=== PATIENT | male | born 1970 | race Caucasian/White ===

== ENCOUNTER → 2020-01-31 15:17 | Outpatient (CLI) | payer BC, SELFPAY ==
[2017-10-04 15:12] VITALS: BMI 25.8
[2020-01-31 15:23] LABS: Bacteria 0 SEEN /hpf (None Seen); Mucous, Urine 0 SEEN /hpf (<or=2+); Squamous Epithelial Cells - UA 0 SEEN /hpf (0-5); White Blood Cells 0 SEEN /hpf (0-5)
[2020-01-31 17:34] LABS: Absolute Lymphocyte Count 2.82 X10^3/uL (0.83-4.51); Absolute Neutrophil Count 3.7 X10^3/uL (2.0-7.7); Basophil# 0.09 X10^3/uL; Basophil% 1.2 % (0-1); Eosinophil# 0.36 X10^3/uL; Eosinophils% 4.7 % (0-5); Hematocrit 46.7 % (40-54); Hemoglobin 15.3 g/dL (13.0-16.5); Lymphocyte # 2.82 X10^3/ul (4.0); Lymphocyte % 37.2 % (19-41); Mean Corp Hgb Conc 32.8 g/dL (32-36); Mean Corpuscular Hgb 29.2 pg (27.0-32.0); Mean Corpuscular Volume 89.1 fL (80-94); Mean Platelet Vol. 10.3 fl (6.2-12.0); Monocyte# 0.64 X10^3/uL; Monocyte% 8.4 % (0-10); NRBC Flagged by Analyzer 0 % (0-5); Neutrophil # 3.65 X10^3/uL (2.7-7.7); Neutrophil % 48.1 % (47-70); Platelet Count 258 K/mm3 (150-450); RBC Distribution Width CV 11.8 % (11.6-14.6); RBC Distribution Width SD 38.5 fl (35.1-43.9); Red Blood Count 5.24 M/mm3 (4.6-6.2); White Blood Count 7.6 K/mm3 (4.4-11.0)
[2020-01-31 18:00] LABS: Color, Urine Yellow (Yellow); Glucose, Dipstick Normal (Normal); Ketone-Dipstick Negative (Negative); Leukocyte Esterase-Dipstick Negative /ul (Negative); Nitrite-Dipstick Negative (Negative); Occult Blood-Urine Negative /ul (Negative); Protein-Dipstick Negative (Negative); Specific Gravity, Urine 1.015 (1.002-1.030); Urine Bilirubin Dipstick Negative (Negative); Urine Clarity Clear (Clear); Urine Urobilinogen Normal (Normal)
[2020-01-31 18:05] LABS: Anion Gap 4 (5-15); BUN 17 mg/dL (7-18); BUN/Creat Ratio 19.4 RATIO (10-20); Calcium,Total 9.3 mg/dL (8.5-10.1); Chloride 106 mmol/L (98-107); Creatinine, Serum 0.88 mg/dL (0.70-1.30); EST Glomerular Filtration Rate 99 mL/min (>60); Est Glom Filt Rate - Afr Amer 120 mL/min (>60); Glucose 85 mg/dL (74-106); Potassium 4.1 mmol/L (3.5-5.1); Sodium Level 139 mmol/L (136-145)
[2020-01-31 18:24] LABS: Red Blood Cells-Urine 0-5 SEEN /hpf (0-5)
== END ==
PROVIDERS: PCP Family Medicine; Referring Provider Family Medicine; Visit Provider Family Medicine
DX: I10 Essential (primary) hypertension (principal)
CPT/HCPCS: 36415; 80048; 81001; 85025

== ENCOUNTER 2020-10-22 18:59 | Observation (INO) | payer BC, SELFPAY ==
[2020-10-22 18:59] VITALS: BP 164/115; PULSE 82; RESP 18; TEMP 36.6; O2SAT 98; BMI 25.7
--- NOTE | 2020-10-22 19:28 | EKG12_ITS ---
Test Reason : DYSRHYTHMIA Blood Pressure : / mmHG Vent. Rate : 077 BPM Atrial Rate : 077 BPM P-R Int : 176 ms QRS Dur : 102 ms QT Int : 376 ms P-R-T Axes : 047 -33 030 degrees QTc Int : 425 ms Normal sinus rhythm Left axis deviation Minimal voltage criteria for LVH, may be normal variant Abnormal ECG Confirmed by SAAD GARCIA, KULDEEP ([id number]), school photograph editor SIMON CUMMINS ([id number]) on 10/24/2020 7:59:07 AM Referred By: CEZAR Confirmed By:KULDEEP NASH MD
--- NOTE | 2020-10-22 19:30 | CT_ITS ---
STUDY: CTA HEAD AND NECK WITH CONTRAST REASON FOR EXAM: Male, 50 years old. SUDDEN ONSET OF DIZZINESS -- HX:HTN CONTROLLED WITH MEDS RADIATION DOSAGE (If Supplied By Facility): CTDIvol = ( 27.90 ) mGy, DLP = ( 1517.07 ) mGycm TECHNIQUE: CT angiography was performed with a multi-detector CT scanner. Data acquisition was obtained from the skull base through the vertex following intravenous administration of IV 100mL Isovue-370. MIP images were reconstructed from the axial data set. Post-processing of the angiographic images was performed, with multiplanar reformation and 3D reconstruction. Individualized dose optimization techniques were used for this CT. COMPARISON: No relevant priors. FINDINGS: Normal bilateral petrous carotid arteries. Normal right cavernous carotid artery with a normal supraclinoid bifurcation. Normal left cavernous carotid artery with a normal supraclinoid bifurcation. Normal right A1 segments of the anterior cerebral artery. Normal left A1 segments of the anterior cerebral artery. Normal intact anterior communicating artery (ACOM). Normal bilateral A2 segments of the anterior cerebral arteries. Normal right M1 and M2 segments of the middle cerebral arteries, with a normal M1 bifurcation. Normal left M1 and M2 segments of the middle cerebral arteries, with a normal M1 bifurcation. Normal right posterior communicating artery (PCOM). Normal left posterior communicating artery (PCOM). Normal bilateral vertebral arteries. Normal basilar artery with a normal basilar bifurcation. The visualized bilateral superior cerebellar (SCA) arteries are normal. Normal bilateral P1, P2 and visualized P3 segments of the posterior cerebral arteries. There is no demonstrated aneurysm of the [place]. There is no demonstrated abnormality of the visualized brain. AORTIC ARCH: Normal visualized aortic arch. Normal origins of the brachiocephalic, left common carotid, and left subclavian arteries. RIGHT CAROTID ARTERIES: Normal right common carotid artery (CCA). Normal right common carotid bulb. Normal origin of the right internal carotid (ICA) artery without a hemodynamically significant stenosis. Normal visualized cervical portion of the right internal carotid artery. Normal origin of the right external carotid artery (ECA). LEFT CAROTID ARTERIES: Normal left common carotid artery (CCA). Normal left common carotid bulb. Normal origin of the left internal carotid (ICA) artery without a hemodynamically significant stenosis. Normal visualized cervical portion of the left internal carotid artery. Normal origin of the left external carotid artery (ECA). VERTEBRAL ARTERIES: Normal bilateral vertebral arteries. CT/CTA Head AND Neck W/ Contrast IMPRESSION: Patent craniocervical arteries. Electronically Signed: Alisa Devine MD at 20:26 EST Tel , Service support ,
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
[2020-10-22 19:47] LABS: Absolute Lymphocyte Count 2.31 X10^3/uL (0.83-4.51); Absolute Neutrophil Count 4.5 X10^3/uL (2.0-7.7); Basophil% 1.3 % (0-1); Eosinophils% 3.9 % (0-5); Hematocrit 45.1 % (40-54); Hemoglobin 15.5 g/dL (13.0-16.5); Lymphocyte # 2.31 X10^3/ul (4.0); Lymphocyte % 29.7 % (19-41); Mean Corp Hgb Conc 34.4 g/dL (32-36); Mean Corpuscular Hgb 29.8 pg (27.0-32.0); Mean Corpuscular Volume 86.6 fL (80-94); Mean Platelet Vol. 9.5 fl (6.2-12.0); Monocyte# 0.57 X10^3/uL; Monocyte% 7.3 % (0-10); NRBC Flagged by Analyzer 0 % (0-5); Neutrophil # 4.47 X10^3/uL (2.7-7.7); Neutrophil % 57.3 % (47-70); Platelet Count 271 K/mm3 (150-450); RBC Distribution Width CV 11.9 % (11.6-14.6); RBC Distribution Width SD 37.8 fl (35.1-43.9); Red Blood Count 5.21 M/mm3 (4.6-6.2); White Blood Count 7.8 K/mm3 (4.4-11.0)
[2020-10-22 20:01] LABS: Anion Gap 5 (5-15); BUN 15 mg/dL (7-18); BUN/Creat Ratio 17.6 RATIO (10-20); Calcium,Total 9.2 mg/dL (8.5-10.1); Chloride 106 mmol/L (98-107); Creatinine, Serum 0.85 mg/dL (0.70-1.30); EST Glomerular Filtration Rate 102 mL/min (>60); Est Glom Filt Rate - Afr Amer 123 mL/min (>60); Glucose 90 mg/dL (74-106); Potassium 4.3 mmol/L (3.5-5.1); Sodium Level 140 mmol/L (136-145)
[2020-10-22 21:35] VITALS: BP 147/96; PULSE 78; RESP 18; TEMP 36.6; O2SAT 96
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
[2020-10-22 22:21] VITALS: PULSE 72; BMI 27.6
[2020-10-22 22:30] VITALS: BP 169/91; PULSE 67; RESP 18; TEMP 36.6; O2SAT 98
[2020-10-22 22:32] VITALS: BMI 89.8
[2020-10-22] MEDS: Ibuprofen 400 MG Tablet PO (23:06)
[2020-10-22 23:08] VITALS: O2SAT 96
--- NOTE | 2020-10-22 23:10 | PCS.PANDOC ---
PANDEMIC DOCUMENTATION INITIATED: Date: 10/22/2020 Time: 2219
[2020-10-23] VITALS (8 sets, daily range): BP systolic 124–129; BP diastolic 78–86; PULSE 64–87; RESP 16–18; TEMP 36.6–36.7; O2SAT 96–98
[2020-10-23 06:34] LABS: Cholesterol 181 mg/dL (200); High Density Lipoprotein 48 mg/dL; Triglycerides 118 mg/dL; Very Low Density Lipoprotein 24 mg/dL (5-40)
--- NOTE | 2020-10-23 07:33 | MRI_ITS ---
We are attempting to reach an attending provider to discuss findings. An addendum with communication details will be sent when the communication is complete. STUDY: MRI BRAIN WITHOUT CONTRAST REASON FOR EXAM: Male, 50 years old. Sudden onset vertigo, RIGHT eye vision change TECHNIQUE: Standardized multiplanar fat and water weighted pulse sequences were obtained. COMPARISON: CT 10/22/2020 FINDINGS: Normal size of the ventricles and extra-axial spaces for the patient''s age. Normal white matter tracts of the supratentorial brain. There is a 1 cm oval area of faint restricted diffusion within the lateral aspect of the left thalamus consistent with a subacute infarct. Normal T2* images of the brain without demonstrated susceptibility artifact. There is no demonstrated hemosiderin stain. Normal thalami. There is no extra-axial fluid accumulation. Normal flow voids within the major intracranial circulation suggesting patency by spin echo criteria. Normal sella turcica, pituitary gland, infundibular stalk, optic chiasm and hypothalamus. Normal tectal plate and pineal gland. Normal midbrain, shasha and medulla. Normal cerebellum. Normal basal cisterns. Normal bilateral temporal bones. Normal bilateral internal auditory canals. No demonstrated orbital abnormality, within the constraints of a routine brain study. Normal visualized paranasal sinuses. Normal calvarium and skull base. Normal visualized soft tissue structures. Normal visualized upper cervical spine. MRI/Brain without Contrast IMPRESSION: Small subacute infarct of the lateral left thalamus. Electronically Signed: Bhavin Webber MD at 15:15 EST Tel , Service support ,
[2020-10-23] MEDS: amLODIPine 5 MG Tablet PO (10:36)
[2020-10-23] MEDS: Aspirin 325 MG Tablet PO (10:36)
--- NOTE | 2020-10-23 15:59 | CASEMGMT ---
SW completed a PhQ 9 with patient as he did have a Stroke. He scored a 0. Patient declined need for counseling resources. Dorinda ALLRED MSW
--- NOTE | 2020-10-23 16:55 | PCM.DC ---
- Discharge Diagnoses Current Active Problems: Current Active and Chronic Problems TIA (transient ischemic attack) (Acute) Right leg weakness (Acute) Blurry vision, right eye (Acute) You will use the following diet at home:: Cardiac Your food should be the consistency of: Regular Your liquids should be the consistency of: Regular/Thin Discharge Activity: Return to Normal Activity Call your doctor if you observe: Fever of 101 or Higher, Shortness of breath, Dizziness, Fainting spells, Swelling in the ankles, Chest pain, Increased palpitations (irregular heartbeat) Instructions: Stroke, What Is Ischemic Stroke?, Stroke: Taking Medications Allergies/Adverse Reactions: Allergies No Known Allergies Allergy (Verified 10/22/20 19:01) Medications to take at Discharge Amlodipine [Norvasc] 5 mg PO DAILY 10/22/20 Aspirin 81 mg PO DAILY #30 tab.chew 10/23/20 Atorvastatin Calcium [Lipitor] 40 mg PO QHS #30 tab 10/23/20 The following prescriptions were given: Aspirin 81 mg PO DAILY #30 tab.chew Transmission Status: Pending to [facility] Atorvastatin Calcium [Lipitor] 40 mg PO QHS #30 tab Transmission Status: Pending to [facility] Primary Care Physician: Oneal Collins MD [Primary Care Provider] - Please follow up with your Primary Care Physician in: 3-5 days Test Results: Test results from this visit will be discussed in further detail at your follow-up appointment, if applicable. Please Follow Up With: Stevenson Holly MD When: 2-4 weeks
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
== END 2020-10-23 16:56 | disposition home or self-care (01) ==
LOC: ED 19:49 → PCU 22:02
PROVIDERS: Admitting Provider Family Medicine; Emergency Provider Emergency Medicine; PCP Family Medicine; Visit Provider Family Medicine
DX: I63.9 Cerebral infarction, unspecified (principal); R53.1 Weakness; H53.8 Other visual disturbances; I10 Essential (primary) hypertension; Z79.899 Other long term (current) drug therapy
CPT/HCPCS: 70496; 70498; 70551; 80048; 80061; 84484; 85025; 93005; 99218; 99284; Q9967; A4216; G0378

== ENCOUNTER → 2020-11-12 15:02 | Outpatient (CLI) | payer BC, SELFPAY ==
[2020-10-22 22:21] VITALS: BMI 27.6
--- NOTE | 2020-11-12 15:04 | ECHOD_ITS ---
Reason For Study: CVA (10/22/20) Procedure This was a 2D Doppler, Color Flow transthoracic echocardiogram. Exam performed in department. Left Ventricle Normal LV size. Left ventricular systolic function is normal. The estimated ejection fraction is 60 %. Normal diastology for age. No regional wall motion abnormalities noted. Right Ventricle Normal RV size. Normal systolic function. Atria Normal left atrium. Normal right atrium. Bubble contrast study negative for right to left interatrial shunt. Mitral Valve Normal mitral valve. Tricuspid Valve Normal tricuspid valve. Mild tricuspid valve insufficiency. Pulmonary artery systolic pressure is 27 mmHg. Aortic Valve Normal aortic valve. Trisinus/trileaflet aortic valve. Pulmonic Valve Normal pulmonic valve. Great Vessels Normal aortic root. The pulmonary artery is normal size. Normal inferior vena cava. Pericardium/Pleural No pericardial effusion. Medication 22 gauge I.V. with prn adaptor inserted into right arm. Performed a rapid injection of agitated mix of 9 cc saline and 1cc air to assess for atrial septal defect. MMode/2D Measurements & Calculations LVIDd: 4.8 cm IVSd: 1.0 cm Ao root diam: 3.0 cm LVIDs: 2.8 cm LVPWd: 1.00 cm RVDd: 3.8 cm FS: 40.8 % LAV(MOD-bp): 37.5 ml LA A4 area: 13.3 cm2 LA dimension(2D): 3.4 cm LAV(MOD-bp) Indexed: 18.0 ml/m2 LAV(MOD-sp2): 44.3 ml LAV(MOD-sp4): 32.0 ml RA A4 area: 15.6 cm2 Time Measurements MV dec time: 0.16 sec Doppler Measurements & Calculations MV E max neal: 68.6 cm/sec Lat Peak E' Neal: 9.4 cm/sec Med Peak E' Neal: 11.8 cm/sec MV A max neal: 60.8 cm/sec E/E' lat: 7.3 E/E' med: 5.8 MV E/A: 1.1 Ao V2 max: 127.4 cm/sec LV V1 max: 107.9 cm/sec PA V2 max: 148.9 cm/sec Ao max P.5 mmHg LV V1 max P.7 mmHg TR max neal: 240.3 cm/sec TR max P.1 mmHg Interpretation Summary Normal LV size. Left ventricular systolic function is normal. Bubble contrast study negative for right to left interatrial shunt. The estimated ejection fraction is 60 %. Normal diastology for age. No regional wall motion abnormalities noted. Ordering Physician: Oneal Collins Referring Physician: Oneal Collins Performed By: Jammie Childress RDCS, RVT
== END ==
PROVIDERS: PCP Family Medicine; Referring Provider Family Medicine; Visit Provider Family Medicine
DX: I63.9 Cerebral infarction, unspecified (principal)
CPT/HCPCS: 93306; A4216

== ENCOUNTER → 2021-01-17 09:04 | Outpatient (CLI) | payer BC, SELFPAY ==
[2021-01-17 08:13] VITALS: BMI 28.4
[2021-01-17 09:52] LABS: Erythrocyte Sedimentation Rate 1 mm/hr (0-20)
[2021-01-18 15:50] LABS: ANTINUCLEAR ANTIBODIES DIRECT Negative (Negative)
[2021-01-22 20:07] LABS: Complement C3 111 mg/dL (82-167); Dilute Prothrombin Time (dPT) 33.1 sec (0.0-55.0); Dilute Russell Viper Venom 30.9 sec (0.0-47.0); PTT-LA 33.6 sec (0.0-51.9); Protein C Antigen 114 % (60-150); Thrombin Time 18.7 sec (0.0-23.0); dPT Confirm Ratio 1.02 Ratio (0.00-1.40)
[2021-01-23 12:20] LABS: Anti-Cardiolipin Ab, IgA, Qn 22 APL U/mL (0-11); Anti-Cardiolipin Ab, IgG, Qn < 9 GPL U/mL (0-14); Anti-Cardiolipin Ab, IgM, Qn 9 MPL U/mL (0-12); Anti-Thrombin 3 AG, Immunol 107 % (72-124); Antithrombin 3 Function 123 % (75-135); Complement CH50 > 60 U/mL (>41); Interpretation Comment: (.); Protein C, Functional 143 % (73-180); Protein S, Free 105 % (57-157); Protein S, Funtional 89 % (63-140); Protein S, Total 73 % (60-150)
== END ==
PROVIDERS: PCP Family Medicine; Referring Provider Psychiatry & Neurology Neurology; Visit Provider Psychiatry & Neurology Neurology
DX: I63.9 Cerebral infarction, unspecified (principal)
CPT/HCPCS: 36415; 81240; 81241; 85300; 85301; 85302; 85303; 85305; 85306; 85652; 86038; 86147; 86160; 86162; 86225; 86235

== ENCOUNTER 2021-06-13 21:39 | Emergency (ER) | payer BC, SELFPAY ==
[2021-06-13 21:40] VITALS: BP 138/91; PULSE 87; RESP 17; TEMP 36.1; O2SAT 96; BMI 27.8
[2021-06-13 21:42] VITALS: BP 138/91; PULSE 87; RESP 17; TEMP 36.1; O2SAT 96
--- NOTE | 2021-06-13 22:10 | RAD_ITS ---
STUDY: X-RAY CHEST REASON FOR EXAM: Male, 51 years old. SOB TECHNIQUE: Portable, upright, AP chest radiograph COMPARISON: None. FINDINGS: The lungs are clear and expanded. There is no demonstrated pleural abnormality. Normal size heart. Normal mediastinum and dorothea. Normal visualized pulmonary arteries. Normal visualized aortic arch and descending thoracic aorta. Normal visualized thoracic spine. Normal visualized ribs, clavicles, and shoulders. There is no demonstrated abnormality of the visualized soft tissue structures of the upper abdomen. RAD/Chest 1 View IMPRESSION: No acute abnormal cardiopulmonary finding. Electronically Signed: Axel Yuen MD at 22:37 EDT Tel , Service support ,
--- NOTE | 2021-06-13 22:16 | EKG12_ITS ---
Test Reason : SOB Blood Pressure : / mmHG Vent. Rate : 075 BPM Atrial Rate : 075 BPM P-R Int : 174 ms QRS Dur : 106 ms QT Int : 384 ms P-R-T Axes : 053 -28 041 degrees QTc Int : 428 ms Normal sinus rhythm Normal ECG Confirmed by ASAD GARCIA, KULDEEP ([id number]), editor continuity and script EDUARDO TAFOYA ([id number]) on 06/17/2021 11:51:02 AM Referred By: DANYEL Confirmed By:KULDEEP NASH MD
--- NOTE | 2021-06-13 22:17 | ED.VIS.DYS ---
HPI History of Present Illness Chief Complaint: Shortness of Breath Narrative Narrative: 51-year-old male presenting with shortness of breath. Patient states he started having COVID-19 symptoms on Thursday which began with mild shortness of breath, low-grade fevers of 101 Fahrenheit. He denies body aches, chills, loss of taste or smell. He states he was tested on the fourth and was positive. Patient states today he has had a little bit of lightheadedness as well as chest heaviness. He continues to have a cough. Is not productive of sputum. He states he has a past medical history of TIA, hypertension, hyperlipidemia. He denies cardiac history. [facility] Medical History History of stroke Hypertension Stroke Thalamic stroke Home Medications amlodipine 5 mg PO DAILY 10/22/20 [History Last Taken 10/22/20] aspirin 325 mg tablet 325 mg PO DAILY 04/18/21 [History Last Taken Unknown] atorvastatin 40 mg tablet 40 mg PO QHS #90 tab 04/18/21 [Rx Last Taken Unknown] Allergy/AdvReac Type Severity Reaction Status Date / Time No Known Allergies Allergy Verified 06/13/21 21:43 Family History Father Hypertension Mother Colon cancer Other Diabetes Surgical History History of appendectomy Social History Smoking Status: Never smoker Tobacco: How many years used: 30 Smokeless tobacco user: chewing tobacco Electronic Cigarette Use: not used how long ago did patient quit smokin second hand exposure: No alcohol intake: current alcohol intake frequency: 0-2 drinks per day Alcohol type: beer substance use type: does not use ROS ROS ED Constitutional Constitutional ED: Reports fever(s); Denies chills or sweats Eyes Eyes: Denies blurry vision or diplopia ENT ENT ED: Reports sore throat; Denies rhinorrhea Cardiovascular Cardiovascular: Reports chest pain; Denies palpitations Respiratory/Chest Respiratory/Chest: Reports cough and dyspnea Gastrointestinal Gastrointestinal: Denies abdominal pain, diarrhea, nausea or vomiting Genitourinary Genitourinary ED: Denies dysuria or hematuria Musculoskeletal Musculoskeletal: Denies arthralgias, myalgias or neck pain Integumentary Denies Abrasions or rash Neurologic Neurologic: Reports headache(s); Denies paresthesias EXAM Physical Exam Const Vital Signs: 06/13/21 21:40 06/13/21 21:42 06/13/21 22:38 Temperature 96.9 F L 96.9 F L Temperature Source Temporal Temporal Pulse Rate 87 87 Respiratory Rate 17 17 Respiratory Effort Short of Breath Respiratory Pattern Normal Blood Pressure 138/91 H 138/91 H Blood Pressure Mean 106 106 Pulse Ox 96 96 Oxygen Delivery Method Room Air Room Air 06/13/21 22:51 Temperature Temperature Source Pulse Rate 80 Respiratory Rate 16 Respiratory Effort Respiratory Pattern Blood Pressure Blood Pressure Mean Pulse Ox Oxygen Delivery Method Positive well nourished General Appearance ED: NAD; Negative for pallor HEENT Reports moist mucous membranes atraumatic Eyes PERRL and EOMs intact bilaterally General Eye ED: Negative for pale conjunctiva or scleral icterus Neck no lymphadenopathy and supple Resp normal respiratory effort and clear to auscultation bilaterally Cardio regular rate and regular rhythm Neuro oriented x3, CN's II-XII intact bilaterally and no sensory deficits noted Sensorium / Orientation: alert Motor Exam: strength 5/5 throughout Psych mental status grossly normal Thought Process: normal thought process Skin no wounds General Skin Exam: Negative for jaundice or pallor Rashes: no rashes MDM MDM MDM Narrative Medical decision making narrative: Patient presenting with history of positive COVID-19 testing. He states he feels a little bit dyspneic and like his chest is slightly heavy. This has been going on for the whole day. Patient had low-grade fevers of 101 Fahrenheit. He lost taste and smell but has not had any chills or body aches. He has a mild cough. I did obtain an EKG given his symptoms and on my interpretation he has a normal sinus rhythm at 75 bpm without sign of ischemic change. Chest x-ray on my interpretation shows no acute cardiopulmonary process. CBC shows that he is leukopenic and lymphopenic. His renal function and electrolytes are normal. His LFTs are normal. Procalcitonin is negative. Patient ambulated and maintained O2 sats of greater than 96% on room air. Given this I have low suspicion for PE and the patient's heart rate is 80 respiratory rate 16 and O2 saturations are normal. I will refer him for monoclonal antibodies but I feel he is stable to be discharged home. Impression: 1. COVID-19 pneumonitis 2. Chest pain noncardiac Lab Data Labs: Laboratory Results - last 24 hr 06/13/21 06/13/21 06/13/21 22:34 22:34 22:34 WBC 3.4 L RBC 5.20 Hgb 15.2 Hct 45.3 MCV 87.1 MCH 29.2 MCHC 33.6 RDW Std Deviation 37.2 RDW Coeff of Walter 11.5 L Plt Count 180 MPV 9.6 Immature Gran % (Auto) 0.300 Neut % (Auto) 40.3 L Lymph % (Auto) 39.2 [place] % (Auto) 16.3 H Eos % (Auto) 2.7 Baso % (Auto) 1.2 H Absolute Neuts (auto) 1.4 L Absolute Lymphs (auto) 1.32 Nucleated RBC % 0 Sodium 137 Potassium 3.7 Chloride 102 Carbon Dioxide 30.0 Anion Gap 5 BUN 16 Creatinine 0.88 Estim Creat Clear Calc 108.15 Est GFR (MDRD) Af Amer 119 Est GFR (MDRD) Non-Af 98 BUN/Creatinine Ratio 18.3 Glucose 107 H Calcium 8.6 Total Bilirubin 1.00 AST 17 ALT 31 Alkaline Phosphatase 69 Troponin I High Sens 6 Total Protein 7.3 Albumin 3.7 Globulin 3.6 Albumin/Globulin Ratio 1.0 Procalcitonin 0.06 Radiography Diagnostic Testing: Radiology Impression Chest X-Ray 06/13/21 22:10 IMPRESSION: No acute abnormal cardiopulmonary finding. Electronically Signed: Axel Yuen MD at 22:37 EDT Tel , Service support , Discharge Plan Triage Chief Complaint: Shortness of Breath ED Provider: Juan A Aldrich Dx/Rx/DC Orders Instructions: Coronavirus Disease 2019 (COVID-19): Caring for Yourself or Others, ED Dyspnea Prescriptions: No Action aspirin 325 mg tablet 325 mg PO DAILY RF: 0 atorvastatin 40 mg tablet 40 mg PO QHS Qty: 90 RF: 1 amlodipine 5 MG tablet 5 mg PO DAILY RF: 0 Other Ambulatory Orders: COVID Outpatient Monoclonal Antibody Referral (Routine) Location: None Selected Ordered By: Dr. Juan A Aldrich Primary Care Provider: Oneal Collins Referrals: Oneal Collins MD [Primary Care Provider] -
[2021-06-13 22:44] LABS: Absolute Lymphocyte Count 1.32 X10^3/uL (0.83-4.51); Absolute Neutrophil Count 1.4 X10^3/uL (2.0-7.7); Basophil# 0.04 X10^3/uL; Basophil% 1.2 % (0-1); Eosinophil# 0.09 X10^3/uL; Eosinophils% 2.7 % (0-5); Hematocrit 45.3 % (40-54); Hemoglobin 15.2 g/dL (13.0-16.5); Lymphocyte # 1.32 X10^3/ul (0.83-4.51); Lymphocyte % 39.2 % (19-41); Mean Corp Hgb Conc 33.6 g/dL (32-36); Mean Corpuscular Hgb 29.2 pg (27.0-32.0); Mean Corpuscular Volume 87.1 fL (80-94); Mean Platelet Vol. 9.6 fl (6.2-12.0); Monocyte# 0.55 X10^3/uL; Monocyte% 16.3 % (0-10); NRBC Flagged by Analyzer 0 % (0-5); Neutrophil # 1.36 X10^3/uL (2.7-7.7); Neutrophil % 40.3 % (47-70); Platelet Count 180 K/mm3 (150-450); RBC Distribution Width CV 11.5 % (11.6-14.6); RBC Distribution Width SD 37.2 fl (35.1-43.9); White Blood Count 3.4 K/mm3 (4.4-11.0)
[2021-06-13 22:51] VITALS: PULSE 80; RESP 16
[2021-06-13 23:04] LABS: AST(SGOT) 17 U/L (15-37); Alanine Aminotransfer ALT/SGPT 31 U/L (16-61); Albumin, Serum 3.7 g/dL (3.2-5.0); Alkaline Phosphatase 69 U/L (45-117); Anion Gap 5 (5-15); BUN 16 mg/dL (7-18); BUN/Creat Ratio 18.3 RATIO (10-20); Calcium,Total 8.6 mg/dL (8.5-10.1); Chloride 102 mmol/L (98-107); Creatinine, Serum 0.88 mg/dL (0.70-1.30); EST Glomerular Filtration Rate 98 mL/min (>60); Est Glom Filt Rate - Afr Amer 119 mL/min (>60); Estimated Creatinine Clearance 108.15 ml/min; Globulin 3.6 g/dL (2.2-4.2); Glucose 107 mg/dL (74-106); Potassium 3.7 mmol/L (3.5-5.1); Protein, Total 7.3 g/dL (6.4-8.2); Sodium Level 137 mmol/L (136-145); Troponin-I HS 6 pg/mL (3.0-78.0)
[2021-06-13 23:08] LABS: Procalcitonin 0.06 ng/mL (0.00-0.09)
[2021-06-13 23:47] VITALS: O2SAT 95
== END 2021-06-14 00:15 | disposition home or self-care (01) ==
LOC: ED 22:49
PROVIDERS: Emergency Provider Student in an Organized Health Care Education/Training Program; PCP Family Medicine
DX: U07.1 COVID-19 (principal); J12.82 Pneumonia due to coronavirus disease 2019; R07.89 Other chest pain; E78.5 Hyperlipidemia, unspecified; I10 Essential (primary) hypertension; Z79.82 Long term (current) use of aspirin; Z86.73 Personal history of transient ischemic attack (TIA), and cerebral infarction without residual deficits
CPT/HCPCS: 71045; 80053; 84145; 84484; 85025; 87040; 93005; 99284; A4216

== ENCOUNTER → 2021-06-14 16:08 | Outpatient (CLI) | payer BC, SELFPAY | PROVIDERS: PCP Family Medicine; Visit Provider Physician Assistant Surgical | DX: U07.1 COVID-19 (principal) | CPT/HCPCS: 87635; U0005; U0003 ==

== ENCOUNTER → 2023-05-29 | Outpatient (CLI) | payer OTHER, SELFPAY ==
[2023-05-29 09:54] LABS: Absolute Lymphocyte Count 2.39 X10^3/uL (0.83-4.51); Absolute Neutrophil Count 3.6 X10^3/uL (2.0-7.7); Basophil# 0.08 X10^3/uL; Basophil% 1.1 % (0-1); Eosinophil# 0.36 X10^3/uL; Eosinophils% 5.1 % (0-5); Hemoglobin 14.9 g/dL (13.0-16.5); Lymphocyte # 2.39 X10^3/ul (0.83-4.51); Mean Corp Hgb Conc 32.4 g/dL (32-36); Mean Corpuscular Hgb 28.7 pg (27.0-32.0); Mean Corpuscular Volume 88.5 fL (80-94); Mean Platelet Vol. 9.9 fl (6.2-12.0); Monocyte# 0.61 X10^3/uL; Monocyte% 8.7 % (0-10); NRBC Flagged by Analyzer 0 % (0-5); Neutrophil # 3.55 X10^3/uL (2.7-7.7); Neutrophil % 50.7 % (47-70); Platelet Count 255 K/mm3 (150-450); RBC Distribution Width CV 11.9 % (11.6-14.6); RBC Distribution Width SD 38.7 fl (35.1-43.9)
[2023-05-29 10:44] LABS: ALB/GLOB Ratio 1.4 RATIO (0.9-2.4); AST(SGOT) 11 U/L (15-37); Alanine Aminotransfer ALT/SGPT 23 U/L (16-61); Albumin, Serum 4.1 g/dL (3.2-5.0); Alkaline Phosphatase 82 U/L (45-117); Anion Gap 6 (5-15); BUN 18 mg/dL (7-18); BUN/Creat Ratio 21.3 RATIO (10-20); Calcium,Total 8.9 mg/dL (8.5-10.1); Chloride 106 mmol/L (98-107); Cholesterol 114 mg/dL (200); Creatinine, Serum 0.85 mg/dL (0.70-1.30); EST Glomerular Filtration Rate 101 mL/min (>60); Est Glom Filt Rate - Afr Amer 123 mL/min (>60); Ferritin 61 ng/mL (26-388); Glucose 93 mg/dL (74-106); High Density Lipoprotein 45 mg/dL; Iron 105 ug/dL (65-175); Protein, Total 7.1 g/dL (6.4-8.2); Sodium Level 139 mmol/L (136-145); Triglycerides 62 mg/dL; Very Low Density Lipoprotein 12 mg/dL (5-40)
== END | disposition home or self-care (01) ==
LOC: MTLAB 08:43
PROVIDERS: PCP Nurse Practitioner Family; Referring Provider Nurse Practitioner Family; Visit Provider Nurse Practitioner Family
DX: Z00.01 Encounter for general adult medical examination with abnormal findings (principal); R06.02 Shortness of breath
CPT/HCPCS: 36415; 80053; 80061; 82728; 83540; 85025

== ENCOUNTER 2023-06-12 08:28 | Day surgery (SDC) | payer OTHER, SELFPAY ==
[2023-06-12] VITALS (8 sets, daily range): BP systolic 101–128; BP diastolic 72–78; PULSE 59–76; RESP 16; TEMP 36.3–36.8; O2SAT 94–97; BMI 27.9
[2023-06-12] MEDS: Lactated Ringers 1,000 ML 15 ML IV (09:03)
--- NOTE | 2023-06-12 09:28 | H&P.OPEN ---
HPI - General HPI Narrative CAMERON PETERS, is a 53 M who presents for screening colonoscopy. Patient is never had a colonoscopy in the past. He denies abdominal pain or blood in the stool. He does have family history of colon cancer in his mother who had it under age 60. [facility] Medical History (Updated 06/11/23 @ 09:32 by Chelsea Ragsdale) Family hx of colon cancer Gastric reflux High cholesterol History of echocardiogram History of kidney stones History of stroke Hypertension Non-smoker Stroke Thalamic stroke Wears glasses Home Medications amlodipine 5 mg tablet 5 mg PO DAILY 10/22/20 [History Last Taken 06/12/23] aspirin 325 mg tablet 325 mg PO QODAY 04/18/21 [History Last Taken Unknown] atorvastatin 40 mg tablet 40 mg PO QHS #90 tabs 08/05/21 [Rx Last Taken Unknown] pantoprazole 20 mg tablet,delayed release 20 mg PO DAILY 05/14/23 [History Last Taken 06/12/23] loratadine 10 mg disintegrating tablet (Alavert) 10 mg PO DAILY 06/11/23 [History Last Taken Unknown] Allergy/AdvReac Type Severity Reaction Status Date / Time No Known Allergies Allergy Verified 06/12/23 08:44 Family History Father Hypertension Mother Colon cancer Other Diabetes Surgical History (Updated 06/11/23 @ 09:00 by Chelsea Ragsdale) History of appendectomy History of surgery Social History Smoking Status: Never smoker Tobacco: How many years used: 30 Smokeless tobacco user: chewing tobacco Electronic Cigarette Use: not used how long ago did patient quit smokin second hand exposure: No alcohol intake: current alcohol intake frequency: 0-2 drinks per day Alcohol type: beer substance use type: does not use Past Medical/Surgical History Planned Operation Planned Operative Procedure/s: colonoscopy Previous Hospitalizations/Surgeries HX Hospitalizations: No Any Problems With Anesthesia: No You/Your Family Experience Fever (Hyperthermia) With Anes: No Cholinesterase deficiency: No Cardiovascular Hx of Irregular Heartbeat and/or Afib: No Hx Heart Attack: No Hx Congestive Heart Failure: No Hx Hypertension: Yes Hx Internal Defibrillator: No Hx Pacemaker: No Hx Cardiac Catheterization: No Hx Cardiac Surgery/Stents/Etc.: No Hx Pain in Legs when Walking/Leg Cramps: No Respiratory Hx Chronic Obstructive Pulmonary Disease (COPD): No Hx Asthma: No Hx Emphysema: No Hx Sleep Apnea: No Hx Respiratory Tract Infection/Cold (presently): No Do You Snore Loudly (louder than talking or can be heard): No Do You Often Feel Tired/ Fatigued/ Sleepy Dring Daytime?: No Has Anyone Observed You Stop Breathing During Sleep?: No Result (for STOP score): Negative Hx Smoking: No Smoking Status: Never smoker Gastrointestinal Hx Gastrointestinal Bleed: No Hx Ulcer: No Difficulty Chewing/Swallowing: No Hx Unplanned Weight Loss of 20#: No Neurological Hx Seizures: No Hx Multiple Sclerosis: No Hx Parkinson's Disease: No Does patient have nerve stimulator: No Blood Disorder Hx High Cholesterol: No Hx Hepatitis: No Hx Cirrhosis: No Hx Anemia: No Hx Blood Disorders: No Genitourinary Hx Renal Disease: No Hx Dialysis: No Musculoskeletal Hx Arthritis: No Hx Rheumatoid Arthritis: No Endocrine Hx Diabetes: No Thyroid Disease: No Psycho/Social Hx Substance Use: No Hx Alcohol Use: No Hx Anxiety: No Hx Depression: No Hx Dementia: No Miscellaneous Hx Cancer: No Recent Exposure to Contagious Disease: No Allergies No Known Allergies Allergy (Verified 06/12/23 08:44) Maternal: Family History Father Hypertension Mother Colon cancer Other Diabetes No pertinent history Discharge Is Pt Admitted From a Fpc, or a Alf: No Who Could Help: After D/C, Where Do you Plan to Go: Return Home Vital Signs Vital Signs Vital Signs: 06/12/23 08:45 06/12/23 08:45 Temperature 98.3 F Temperature Source Temporal Pulse Rate 69 Respiratory Rate 16 Respiratory Pattern Normal Blood Pressure 128/75 H Blood Pressure Mean 92 Blood Pressure Source Monitor Blood Pressure Position Semi-Fowlers Blood Pressure Location Left Arm Pulse Ox 97 Oxygen Delivery Method Room Air Weight Weight: 200 lb 9.93 oz Body Mass Index (BMI) 27.9 Physical Exam Const alert and oriented x3 HEENT normocephalic Eyes PERRL Resp normal respiratory effort and normal air movement Cardio regular rate and regular rhythm GI soft to palpation, non-tender and non-distended Extremity normal to inspection Assessment & Plan Assessment/Plan (1) Encounter for screening for malignant neoplasm of colon: PLAN: Patient is here for screening colonoscopy. He has a family history of colon cancer in his mother at a young age so I recommend repeat in 5 years regardless of the findings. I explained endoscopy in detail to the patient. I explained the risks including but not limited to stroke or heart attack with anesthesia, perforation of the GI tract, bleeding, infection. I explained that any of these could necessitate further emergency surgery. The patient understands and all questions were answered sufficiently. The patient wishes to proceed with procedure. Aly Joe MD Pager: [facility] [address] [place] [address] [address] [place] [address] Office: Surgery Risks - Colonoscopy Risks Include but are not Limited To: Risks include but are not limited to: Bleeding, perforation requiring further surgery, inability to complete colonoscopy requiring barium enema.
--- NOTE | 2023-06-12 09:50 | OP.CCLET_ITS ---
06/12/2023 Ramya Tao Re : Colonoscopy procedure for Juan A Morales Dear Reg This procedure was performed on Monday, June 12, 2023. My impressions and recommendations are as follows: Impressions : - The entire examined colon is normal on direct and retroflexion views. - No specimens collected. Recommendations : - Discharge patient to home. - Resume previous diet. - Continue present medications. - Repeat colonoscopy in 5 years for screening purposes. My findings are described in the full procedure note, which is enclosed. If I can be of further assistance, please feel free to contact me at Doctor phone number(s): , Work: . Sincerely, Aly Joe MD 06/12/2023 9:50:26 AM This report has been signed electronically.
--- NOTE | 2023-06-12 09:50 | OP.COLON_ITS ---
Patient Name: Juan A Morales Procedure Date: 06/12/2023 9:30 AM Date of : 1970 Age: 53 Procedure: Colonoscopy Indications: Screening in patient at increased risk: Family history of 1st-degree relative with colorectal cancer before age 60 years Providers: Aly Joe MD Referring MD: Aly Joe MD Medicines: Monitored Anesthesia Care Patient Profile: This is a 53 year old male. Refer to note in patient chart for documentation of history and physical. Last Colonoscopy: none. The patient's first colonoscopy is today. Complications: No immediate complications. Procedure: Pre-Anesthesia Assessment: - Prior to the procedure, a History and Physical was performed, and patient medications and allergies were reviewed. The patient's tolerance of previous anesthesia was also reviewed. The risks and benefits of the procedure and the sedation options and risks were discussed with the patient. All questions were answered, and informed consent was obtained. Prior Anticoagulants: The patient has taken no anticoagulant or antiplatelet agents. After reviewing the risks and benefits, the patient was deemed in satisfactory condition to undergo the procedure. After I obtained informed consent, the scope was passed under direct vision. Throughout the procedure, the patient's blood pressure, pulse, and oxygen saturations were monitored continuously. The pediatric colonoscope was introduced through the anus and advanced to the cecum, identified by appendiceal orifice and ileocecal valve. The colonoscopy was performed without difficulty. The patient tolerated the procedure well. The quality of the bowel preparation was good. The ileocecal valve, appendiceal orifice, and rectum were photographed. Scope In: 9:36:57 AM Scope Withdrawal Time 0 hours 3 minutes 4 seconds Scope Out: 9:43:06 AM Total Procedure Duration Time 0 hours 6 minutes 9 seconds Findings: The entire examined colon appeared normal on direct and retroflexion views. Impression: - The entire examined colon is normal on direct and retroflexion views. - No specimens collected. Recommendation: - Discharge patient to home. - Resume previous diet. - Continue present medications. - Repeat colonoscopy in 5 years for screening purposes. Procedure Code(s): --- Professional --- 91531, Colonoscopy, flexible; diagnostic, including collection of specimen(s) by brushing or washing, when performed (separate procedure) Diagnosis Code(s): --- Professional --- Z80.0, Family history of malignant neoplasm of digestive organs CPT copyright 2021 [employer]. All rights reserved. The codes documented in this report are preliminary and upon traffic workforce representative review may be revised to meet current compliance requirements. Aly Joe MD 06/12/2023 9:50:26 AM This report has been signed electronically. Number of Addenda: 0 Note Initiated On: 06/12/2023 9:30 AM
== END 2023-06-12 10:40 | disposition home or self-care (01) ==
LOC: EN 08:30 → AC 08:32
PROVIDERS: PCP Nurse Practitioner Family; Referring Provider Nurse Practitioner Family; Visit Provider Surgery
PROC: 0DJD8ZZ Inspection of Lower Intestinal Tract, Via Natural or Artificial Opening Endoscopic (ICD-10-PCS; CPT 45378; principal; 2023-06-12 09:25)
DX: Z12.11 Encounter for screening for malignant neoplasm of colon (principal); I10 Essential (primary) hypertension; E78.00 Pure hypercholesterolemia, unspecified; Z79.82 Long term (current) use of aspirin; Z87.891 Personal history of nicotine dependence; Z80.0 Family history of malignant neoplasm of digestive organs
CPT/HCPCS: 45378; J7120; J2405

== ENCOUNTER → 2023-10-20 | Outpatient (CLI) | payer OTHER, SELFPAY ==
--- NOTE | 2023-10-20 10:01 | RAD_ITS ---
STUDY: X-RAY CHEST REASON FOR EXAM: Male, 53 years old. Shortness of breath TECHNIQUE: PA and lateral views of the chest. COMPARISON: Comparison is made with prior study date June 13, 2021. FINDINGS: The lungs are clear and expanded. There is no demonstrated pleural abnormality. Normal size heart. Normal mediastinum and dorothea. Normal visualized pulmonary arteries. Normal visualized aortic arch and descending thoracic aorta. Normal visualized thoracic spine. Normal visualized ribs, clavicles, and shoulders. There is no demonstrated abnormality of the visualized soft tissue structures of the upper abdomen. RAD/Chest PA and Lateral IMPRESSION: Normal x-ray examination of the chest. Electronically Signed: Chava Almazan MD at 13:36 EST ,
== END | disposition home or self-care (01) ==
LOC: MTRAD 09:55
PROVIDERS: PCP Nurse Practitioner Family; Referring Provider Nurse Practitioner Family; Visit Provider Nurse Practitioner Family
DX: R06.02 Shortness of breath (principal)
CPT/HCPCS: 71046

== ENCOUNTER 2023-11-05 11:02 | Emergency (ER) | payer OTHER, SELFPAY ==
[2023-11-05 11:02] VITALS: BP 162/95; PULSE 77; RESP 16; TEMP 36.3; O2SAT 98; BMI 29.6
--- NOTE | 2023-11-05 11:13 | RAD_ITS ---
STUDY: X-RAY CHEST REASON FOR EXAM: Male, 53 years old. Chest pain TECHNIQUE: PA and lateral views of the chest. COMPARISON: Comparison is made with prior study dated October 20, 2023. FINDINGS: EKG electrodes are seen. The lungs are clear and expanded. There is no demonstrated pleural abnormality. Normal size heart. Normal mediastinum and dorothea. Normal visualized pulmonary arteries. Normal visualized aortic arch and descending thoracic aorta. Normal visualized thoracic spine. Normal visualized ribs, clavicles, and shoulders. There is no demonstrated abnormality of the visualized soft tissue structures of the upper abdomen. RAD/Chest PA and Lateral IMPRESSION: Normal x-ray examination of the chest. Electronically Signed: Chava Almazan MD at 12:52 EST ,
--- NOTE | 2023-11-05 11:15 | EX.ED.DYSGE1 ---
HPI <AMAIRANI Waller - Last Filed: 11/05/23 12:16> History of Present Illness Chief Complaint: Chest Pain Narrative Narrative: Patient is a 53-year-old male with history of CVA, hypertension and takes a full aspirin every other day, GERD who presents to the emergency department for 2 days of right-sided chest pain. Patient states the pain is constant. He states it is not exacerbated by movement, he says there is slight difference when he takes a big breath. Patient denies any frequent travel, posterior leg pain, recent surgeries. Patient states today, secondary to the the pain is continuing he is here for evaluation. He denies any cough, fever or chills PFSH <AMAIRANI Waller - Last Filed: 11/05/23 12:16> PFSH Medical History (Updated 11/05/23 @ 12:12 by AMAIRANI Waller) Family hx of colon cancer Gastric reflux High cholesterol History of echocardiogram History of kidney stones History of stroke Hypertension Non-smoker Stroke Thalamic stroke Wears glasses Home Medications amlodipine 5 mg tablet 5 mg PO DAILY 10/22/20 [History Last Taken 06/12/23] aspirin 325 mg tablet 325 mg PO QODAY 04/18/21 [History Last Taken Unknown] atorvastatin 40 mg tablet 40 mg PO QHS #90 tabs 08/05/21 [Rx Last Taken Unknown] pantoprazole 20 mg tablet,delayed release 20 mg PO DAILY 05/14/23 [History Last Taken 06/12/23] loratadine 10 mg disintegrating tablet (Alavert) 10 mg PO DAILY 06/11/23 [History Last Taken Unknown] Allergy/AdvReac Type Severity Reaction Status Date / Time No Known Allergies Allergy Verified 11/05/23 11:03 Family History Father Hypertension Mother Colon cancer Other Diabetes Surgical History History of appendectomy History of surgery Social History Smoking Status: Never smoker Tobacco: How many years used: 30 Smokeless tobacco user: chewing tobacco Electronic Cigarette Use: not used how long ago did patient quit smokin second hand exposure: No alcohol intake: current alcohol intake frequency: 0-2 drinks per day Alcohol type: beer substance use type: does not use ROS <AMAIRANI Waller - Last Filed: 11/05/23 12:16> ROS ED ROS Narrative Constitutional: Negative for fever, chills, weight loss, weakness Eyes: Negative for vision loss, vision change, double vision ENT: Negative for any sore throat, ear pain, congestion Cardiovascular: Negative for any tightness, palpitations. Positive for right-sided chest Respiratory: Negative for any cough, sputum production, hemoptysis, dyspnea, dyspnea on exertion, orthopnea Gastrointestinal: Negative for any abdominal pain, nausea, vomiting, diarrhea, constipation, blood in stool, blood in vomit : Negative for any urinary frequency, dysuria, retention, blood in urine Muscle skeletal: Negative for any myalgias, arthralgias, neck pain, back pain Neurological: Negative for any headache, syncope, paresthesias, dizziness Skin: Negative for any rashes, lumps, itching, abrasions, lacerations Psychiatric: Negative for any depression, anxiety, stress, suicidal ideation, homicidal ideation Hematologic: Negative for any easy bruising, excessive bruising, easy bleeding Allergies: Negative for any eczema, hives, rash EXAM <AMAIRANI Waller - Last Filed: 11/05/23 12:16> Physical Exam Narrative Exam Narrative: Vital signs reviewed. HEET: Head normocephalic atraumatic, TMs clear bilaterally. Posterior pharynx is clear, moist mucous membranes. Nares clear bilaterally. Neck: Supple with no lymphadenopathy or tenderness. No signs of meningismus. Cardiac: Regular rate and rhythm no murmurs gallops or rubs, equal peripheral pulses bilaterally. Respiratory: Lungs clear to auscultation bilaterally. No chest tenderness. Abdomen: Soft, nontender, nondistended. No abdominal bruit or pulsatile masses. No hepatosplenomegaly Extremities: No peripheral edema, no signs of gross trauma or deformity. Active full range of motion of all extremities. Neuro: Cranial nerves II through XII intact, no focal neurological deficits. Skin: Clean dry and intact with no rash, purpura, petechiae, vesicles or pustules. Backs/flank: No CVA tenderness, no midline spinal tenderness, no deformity. Psych: Normal mood and affect. No SI, HI or acute psychosis. Const Vital Signs: 11/05/23 11:02 11/05/23 11:10 11/05/23 12:02 Temperature 97.3 F L Temperature Source Temporal Pulse Rate 77 64 Respiratory Rate 16 19 H Respiratory Effort Normal Blood Pressure 162/95 H 162/96 H Blood Pressure Mean 117 118 Pulse Ox 98 95 Oxygen Delivery Method Room Air Room Air 11/05/23 12:12 Temperature Temperature Source Pulse Rate 64 Respiratory Rate 18 Respiratory Effort Blood Pressure 162/96 H Blood Pressure Mean 118 Pulse Ox 95 Oxygen Delivery Method <Dr. Michael Mukherjee MD - Last Filed: 11/05/23 12:38> Physical Exam Const Vital Signs: 11/05/23 11:02 11/05/23 11:10 11/05/23 12:02 Temperature 97.3 F L Temperature Source Temporal Pulse Rate 77 64 Respiratory Rate 16 19 H Respiratory Effort Normal Blood Pressure 162/95 H 162/96 H Blood Pressure Mean 117 118 Pulse Ox 98 95 Oxygen Delivery Method Room Air Room Air 11/05/23 12:12 Temperature Temperature Source Pulse Rate 64 Respiratory Rate 18 Respiratory Effort Blood Pressure 162/96 H Blood Pressure Mean 118 Pulse Ox 95 Oxygen Delivery Method MDM <AMAIRANI Waller - Last Filed: 11/05/23 12:16> [facility] Lab Data Labs: Laboratory Results - last 24 hr 11/05/23 11/05/23 11:20 11:39 WBC 5.7 RBC 5.22 Hgb 15.1 Hct 45.3 MCV 86.8 MCH 28.9 MCHC 33.3 RDW Std Deviation 38.3 RDW Coeff of Walter 12.0 Plt Count 149 L MPV 10.7 Immature Gran % (Auto) 0.500 Neut % (Auto) 53.5 Lymph % (Auto) 31.8 Jasper % (Auto) 8.3 Eos % (Auto) 4.0 Baso % (Auto) 1.9 H Absolute Neuts (auto) 3.0 Absolute Lymphs (auto) 1.81 Nucleated RBC % 0 Differential Comment SCANNED D-Dimer Quant (PE/DVT) Cancelled < 0.27 L Sodium 136 Potassium 4.0 Chloride 108 H Carbon Dioxide 23.0 Anion Gap 5 BUN 14 Creatinine 0.90 Estim Creat Clear Calc 114.99 Est GFR (MDRD) Af Amer 115 Est GFR (MDRD) Non-Af 95 BUN/Creatinine Ratio 15.6 Glucose 113 H Calcium 9.1 Total Bilirubin 2.50 H AST 26 ALT 36 Alkaline Phosphatase 82 Troponin I High Sens 4 Total Protein 7.5 Albumin 4.2 Globulin 3.3 Albumin/Globulin Ratio 1.3 Lipase 37 EKG Normal sinus rhythm: Attestation: I personally reviewed and interpreted this EKG as follows: Interpretation: Sinus Rhythm Comments: Normal sinus rhythm, rate of 75 bpm, MO 180 ms, QRS duration 104 ms, no acute ST elevation, no acute infarct noted. Treatment and Re-Evaluation :: Patient is in no obvious distress, vital signs are stable. Patient presenting to the emergency department complaints of chest pain to the right side of his chest. Differential diagnosis includes CAD, ACS, PE, muscle strain, pneumonia. Patient received a two-view chest x-ray they will be interpreted by the ER physician. Patient was seen basic laboratory values including troponin, electrolytes, dimer to rule out any pulmonary embolus. All radiologic examinations were read, reviewed by the emergency department attending. From these reads, a plan of care will be put in place. Patient's chest x-ray was negative for any acute process. Patient's laboratory values showed normal CBC, patient's chemistries showed a total bilirubin of 2.5, this seems to be close to baseline, patient is normally between 1.7 and 2.2. Patient's troponin was negative at 4, do not believe a repeat is needed. Patient's D-dimer was negative at 0.27. At this time, there is no evidence suspect any ACS, [place], pulmonary embolus. Patient be diagnosed with right-sided chest pain, chest wall strain. Patient instructed to follow-up outpatient. Instructed return for any worsening symptom such as shortness of breath, fever chills nausea or vomiting. He is happy with the plan of care, patient stable for discharge. <Dr. Michael Mukherjee MD - Last Filed: 11/05/23 12:38> [facility] Narrative Medical decision making narrative: I have personally performed a face to face assessment of the patient and have reviewed the ODIN Note. I performed a substantive portion of the visit including all aspects of the following. My connolly findings include: History: Patient's been having some soreness in his right anterior chest for about 24 hours. He states nothing really makes it better or worse. Even if he exerts himself or climbs ladders that he does not work it does not change it. He is not really short of breath. No nausea vomiting or diaphoresis. He has never had heart disease but he does have a history of thalamic stroke I am wondering if this might have been a hypertensive stroke. He does not have generalized illness. He is not coughing. No fevers. Exam: Patient is awake alert calm. No tenderness. No skin changes. No crepitance. No pain with a deep breath. Lungs are clear. Heart is regular. I hear no murmur. No abnormality of peripheral pulses. Saturations are normal 98% on room air. Medical Decision Making: Patient will have blood work done. His CBC is overall normal. Electrolytes show no marked abnormalities. Total bilirubin is up but he has no abdominal pain in the other liver function test are normal. This can be followed. Lipase is normal. Troponin is negative and actually quite low especially considering the amount of time he has had the symptoms. D-dimer is unmeasurable and he has no known risk factor for PE. He is not tachypneic tachycardic or hypoxic. I think patient is safe for discharge and follow-up Lab Data Attestation: I reviewed the patient's lab results. Labs: Laboratory Results - last 24 hr 11/05/23 11/05/23 11:20 11:39 WBC 5.7 RBC 5.22 Hgb 15.1 Hct 45.3 MCV 86.8 MCH 28.9 MCHC 33.3 RDW Std Deviation 38.3 RDW Coeff of Walter 12.0 Plt Count 149 L MPV 10.7 Immature Gran % (Auto) 0.500 Neut % (Auto) 53.5 Lymph % (Auto) 31.8 Jasper % (Auto) 8.3 Eos % (Auto) 4.0 Baso % (Auto) 1.9 H Absolute Neuts (auto) 3.0 Absolute Lymphs (auto) 1.81 Nucleated RBC % 0 Differential Comment SCANNED D-Dimer Quant (PE/DVT) Cancelled < 0.27 L Sodium 136 Potassium 4.0 Chloride 108 H Carbon Dioxide 23.0 Anion Gap 5 BUN 14 Creatinine 0.90 Estim Creat Clear Calc 114.99 Est GFR (MDRD) Af Amer 115 Est GFR (MDRD) Non-Af 95 BUN/Creatinine Ratio 15.6 Glucose 113 H Calcium 9.1 Total Bilirubin 2.50 H AST 26 ALT 36 Alkaline Phosphatase 82 Troponin I High Sens 4 Total Protein 7.5 Albumin 4.2 Globulin 3.3 Albumin/Globulin Ratio 1.3 Lipase 37 Discharge Plan Triage Chief Complaint: Chest Pain ED Midlevel Provider: Axel Ramos ED Provider: Michael Mukherjee Dx/Rx/DC Orders Clinical Impression: Chest wall pain, Chest pain Instructions: ED Chest Pain, Noncardiac, ED Chest Pain, Uncertain Cause Prescriptions: No Action aspirin 325 mg tablet 325 mg PO QODAY atorvastatin 40 mg tablet 40 mg PO QHS Qty: 90 3RF pantoprazole 20 mg tablet,delayed release (DR/EC) 20 mg PO DAILY amlodipine 5 MG tablet 5 mg PO DAILY loratadine [Alavert] 10 mg tablet,disintegrating 10 mg PO DAILY Primary Care Provider: Katelin Finney Referrals: Katelin Finney, [facility] [Primary Care Provider] - Activity Restrictions/Additional Instructions: You had a negative cardiac workup today. Please follow-up outpatient. Disposition Disposition: Home, Self Care Discharge Date/Time: 11/05/23 12:18
[2023-11-05 11:27] LABS: Absolute Lymphocyte Count 1.81 X10^3/uL (0.83-4.51); Basophil# 0.11 X10^3/uL; Basophil% 1.9 % (0-1); Eosinophil# 0.23 X10^3/uL; Hematocrit 45.3 % (40-54); Hemoglobin 15.1 g/dL (13.0-16.5); Lymphocyte # 1.81 X10^3/ul (0.83-4.51); Lymphocyte % 31.8 % (19-41); Mean Corp Hgb Conc 33.3 g/dL (32-36); Mean Corpuscular Hgb 28.9 pg (27.0-32.0); Mean Corpuscular Volume 86.8 fL (80-94); Mean Platelet Vol. 10.7 fl (6.2-12.0); Monocyte# 0.47 X10^3/uL; Monocyte% 8.3 % (0-10); NRBC Flagged by Analyzer 0 % (0-5); Neutrophil # 3.04 X10^3/uL (2.7-7.7); Neutrophil % 53.5 % (47-70); POSITIVE COUNT YES; Platelet Count 149 K/mm3 (150-450); RBC Distribution Width SD 38.3 fl (35.1-43.9); Red Blood Count 5.22 M/mm3 (4.6-6.2); White Blood Count 5.7 K/mm3 (4.4-11.0)
--- NOTE | 2023-11-05 11:33 | NURSING ---
COAGS ARE Q AND S
[2023-11-05 11:44] LABS: Differential Indicated SCAN CRITERIA MET
[2023-11-05 11:48] LABS: ALB/GLOB Ratio 1.3 RATIO (0.9-2.4); AST(SGOT) 26 U/L (15-37); Alanine Aminotransfer ALT/SGPT 36 U/L (16-61); Albumin, Serum 4.2 g/dL (3.2-5.0); Alkaline Phosphatase 82 U/L (45-117); Anion Gap 5 (5-15); BUN 14 mg/dL (7-18); BUN/Creat Ratio 15.6 RATIO (10-20); Calcium,Total 9.1 mg/dL (8.5-10.1); Chloride 108 mmol/L (98-107); EST Glomerular Filtration Rate 95 mL/min (>60); Est Glom Filt Rate - Afr Amer 115 mL/min (>60); Estimated Creatinine Clearance 114.99 ml/min; Globulin 3.3 g/dL (2.2-4.2); Glucose 113 mg/dL (74-106); Lipase 37 U/L (13-75); Protein, Total 7.5 g/dL (6.4-8.2); Sodium Level 136 mmol/L (136-145); Troponin-I HS 4 pg/mL (3.0-78.0)
[2023-11-05 12:00] LABS: Differential Comment SCANNED
[2023-11-05 12:02] VITALS: BP 162/96; PULSE 64; RESP 19; O2SAT 95
[2023-11-05 12:03] LABS: D-Dimer Quantitative (DVT/PE) < 0.27 FEU/ug/m (0.27-0.49)
[2023-11-05 12:12] VITALS: BP 162/96; PULSE 64; RESP 18; O2SAT 95
== END 2023-11-05 12:18 | disposition home or self-care (01) ==
PROVIDERS: Nurse Practitioner; Emergency Provider Emergency Medicine; PCP Nurse Practitioner Family; Visit Provider Emergency Medicine
DX: R07.89 Other chest pain (principal); Z86.73 Personal history of transient ischemic attack (TIA), and cerebral infarction without residual deficits; I10 Essential (primary) hypertension; Z87.891 Personal history of nicotine dependence; E78.00 Pure hypercholesterolemia, unspecified; Z80.0 Family history of malignant neoplasm of digestive organs; Z87.442 Personal history of urinary calculi; Z79.82 Long term (current) use of aspirin
CPT/HCPCS: 71046; 80053; 83690; 84484; 85025; 85379; 93005; 99282; A4216

== ENCOUNTER → 2024-01-19 | Outpatient (CLI) | payer OTHER, SELFPAY ==
--- NOTE | 2024-01-19 06:32 | ECHOD_ITS ---
Reason For Study: Chest Pain, WIN Procedure This was a 2D Doppler, Color Flow transthoracic echocardiogram. Exam performed in department. Left Ventricle Normal size and thickness. The left ventricular ejection fraction is 65 %. Diastolic function is indeterminate. Right Ventricle Normal right ventricle. Atria The left and right atria are normal. Mitral Valve Mild mitral valve prolapse, posterior leaflet. Moderate (2+) mitral valve insufficiency. Tricuspid Valve Mild to moderate (1-2+) tricuspid valve insufficiency. Right ventricular systolic pressure estimated to be 38 mmHg. Aortic Valve Trisinus/trileaflet aortic valve. Pulmonic Valve The pulmonic valve is not well visualized. Trivial pulmonic valve insufficiency. Great Vessels Normal sized aortic root. Pericardium/Pleural No pericardial effusion. MMode/2D Measurements & Calculations LVIDd: 5.1 cm IVSd: 0.95 cm Ao root diam: 3.2 cm LVIDs: 3.3 cm LVPWd: 0.73 cm LA dimension: 3.7 cm RVDd: 3.6 cm FS: 36.3 % LAV(MOD-bp): 38.5 ml LVAd ap4: 29.5 cm2 SV(MOD-sp4): 52.8 ml LAV(MOD-bp) Indexed: 17.9 ml/m2 LVLd ap4: 8.3 cm LAV(MOD-sp2): 41.3 ml EDV(MOD-sp4): 86.9 ml LAV(MOD-sp4): 34.1 ml EDV(sp4-el): 89.3 ml LVAs ap4: 16.7 cm2 LVLs ap4: 7.1 cm ESV(MOD-sp4): 34.1 ml ESV(sp4-el): 33.2 ml EF(MOD-sp4): 60.7 % EF(sp4-el): 62.8 % SV(sp4-el): 56.1 ml LA A4 area: 15.0 cm2 RA A4 area: 13.8 cm2 TAPSE: 2.1 cm Time Measurements MV dec time: 0.24 sec Doppler Measurements & Calculations MV E max neal: 51.8 cm/sec Lat Peak E' Neal: 9.5 cm/sec Med Peak E' Neal: 11.1 cm/sec MV A max neal: 73.6 cm/sec E/E' lat: 5.4 E/E' med: 4.7 MV E/A: 0.70 MV V2 max: 67.3 cm/sec MV P1/2t max neal: 65.0 cm/sec Ao V2 max: 118.6 cm/sec MV max P.8 mmHg MV P1/2t: 74.6 msec Ao max P.6 mmHg MV V2 mean: 37.5 cm/sec MV dec slope: 255.4 cm/sec2 Ao V2 mean: 84.3 cm/sec MV mean P.67 mmHg Ao mean P.3 mmHg MV V2 VTI: 19.8 cm MVA(P1/2t): 2.9 cm2 Ao V2 VTI: 24.4 cm AV (velocity ratio): 0.86 LV V1 max: 103.9 cm/sec MR max neal: 520.3 cm/sec PA V2 max: 143.7 cm/sec LV V1 max P.3 mmHg MR max P.3 mmHg PA V2 mean: 85.7 cm/sec LV V1 mean P.2 mmHg LV V1 mean: 68.2 cm/sec LV V1 VTI: 21.1 cm TR max neal: 287.1 cm/sec TR max P.0 mmHg ECHO/Echo Complete Interpretation Summary The left ventricular ejection fraction is 65 %. Diastolic function is indeterminate. Mild mitral valve prolapse, posterior leaflet Moderate (2+) mitral valve insufficiency. Mild to moderate (1-2+) tricuspid valve insufficiency. Right ventricular systolic pressure estimated to be 38 mmHg. Ordering Physician: Milagros Jolley Referring Physician: Milagros Jolley Performed By: Gerard Otero RCS
--- NOTE | 2024-01-19 13:12 | STRESSREP ---
Stress Test Report Date: 01/19/2024 Procedure: Exercise tolerance test/imaging study Indications: Chest pain Consent: Per the patient Procedure: The patient exercised on a Torito protocol for 8 minutes 1 for achieving a peak heart rate of BUN bpm (89% predicted maximal heart rate) with a peak blood pressure 158/82 mmHg and a peak MET capacity of 10.1 METs. The baseline ECG demonstrated sinus rhythm. The peak exercise ECG demonstrated sinus tachycardia with no ischemic changes. Occasional PACs noted. The functional capacity was considered good. There was no complaint of chest discomfort during exercise or recovery. The examination was discontinued secondary to target heart rate being achieved. The patient was injected with 10.8 mCi of technetium 99m Cardiolite and subsequently rest SPECT Cardiolite nuclear imaging was obtained in the horizontal long, vertical long, and short axis views. Post-exercise, the patient was injected with 32.3 mCi of technetium 99m Cardiolite and subsequently stress SPECT Cardiolite nuclear imaging was obtained in the horizontal long, vertical long, and short axis views. A gated Cardiolite study at peak stress was obtained. Rest and stress SPECT Cardiolite nuclear imaging status post realignment, normalization, and attenuation correction, demonstrates the appearance of relative uniform tracer uptake and myocardial perfusion appearing within normal limits. There is end systolic thickening and brightening. The gated Cardiolite study demonstrates myocardial thickening and inward wall motion. The reported LVEF is 67%. Impression: 1. Technically adequate (percent predicted maximal heart rate greater than 85%) exercise tolerance test 2. Peak exercise ECG with no ischemic changes 3. Occasional PACs noted 4. Rest and stress SPECT Cardiolite nuclear imaging demonstrate relative uniform tracer uptake and myocardial perfusion appearing within normal limits. 5. The gated Cardiolite study reports an LVEF of 67%. This note was generated with XINGation software. It may contain incorrect words, spelling, and punctuation that were not noted in checking the note before signing.
== END | disposition home or self-care (01) ==
PROVIDERS: PCP Nurse Practitioner Family; Referring Provider Internal Medicine Cardiovascular Disease; Visit Provider Internal Medicine Cardiovascular Disease
DX: R07.9 Chest pain, unspecified (principal); I10 Essential (primary) hypertension; Z86.73 Personal history of transient ischemic attack (TIA), and cerebral infarction without residual deficits
CPT/HCPCS: 78452; 93017; 93306; A9500; A4216

== ENCOUNTER → 2024-02-05 | Outpatient (CLI) | payer OTHER, SELFPAY ==
[2024-02-05 17:55] LABS: Anion Gap 4 (5-15); BUN 19 mg/dL (7-18); BUN/Creat Ratio 23.1 RATIO (10-20); Calcium,Total 9.8 mg/dL (8.5-10.1); Chloride 108 mmol/L (98-107); Creatinine, Serum 0.82 mg/dL (0.70-1.30); EST Glomerular Filtration Rate 105 mL/min (>60); Est Glom Filt Rate - Afr Amer 126 mL/min (>60); Glucose 99 mg/dL (74-106); Potassium 3.9 mmol/L (3.5-5.1); Sodium Level 140 mmol/L (136-145)
== END | disposition home or self-care (01) ==
LOC: MTLAB 15:48
PROVIDERS: PCP Nurse Practitioner Family; Referring Provider Nurse Practitioner Gerontology; Visit Provider Nurse Practitioner Gerontology
DX: R06.09 Other forms of dyspnea (principal)
CPT/HCPCS: 36415; 80048

== ENCOUNTER → 2024-03-25 | Outpatient (CLI) | payer OTHER, SELFPAY ==
[2024-03-25 18:19] LABS: Anion Gap 8 (5-15); BUN 23 mg/dL (7-18); BUN/Creat Ratio 21.9 RATIO (10-20); Calcium,Total 9.4 mg/dL (8.5-10.1); Chloride 105 mmol/L (98-107); Creatinine, Serum 1.05 mg/dL (0.70-1.30); EST Glomerular Filtration Rate 79 mL/min (>60); Est Glom Filt Rate - Afr Amer 95 mL/min (>60); Glucose 96 mg/dL (74-106); Potassium 4.3 mmol/L (3.5-5.1); Sodium Level 139 mmol/L (136-145)
== END | disposition home or self-care (01) ==
LOC: MTLAB 15:16
PROVIDERS: PCP Nurse Practitioner Family; Referring Provider Internal Medicine Cardiovascular Disease; Visit Provider Internal Medicine Cardiovascular Disease
DX: I34.0 Nonrheumatic mitral (valve) insufficiency (principal); I34.1 Nonrheumatic mitral (valve) prolapse; R06.09 Other forms of dyspnea; I10 Essential (primary) hypertension
CPT/HCPCS: 36415; 80048

== ENCOUNTER → 2024-06-03 | Outpatient (CLI) | payer OTHER, SELFPAY ==
--- NOTE | 2024-06-03 12:38 | RAD_ITS ---
STUDY: X-RAY CHEST REASON FOR EXAM: Male, 54 years old. Increased SOB TECHNIQUE: Frontal and lateral views of the chest. COMPARISON: 11/05/2023. FINDINGS: The lungs are clear and expanded. There is no demonstrated pleural abnormality. Normal size heart. Normal mediastinum and dorothea. Normal visualized pulmonary arteries. Normal visualized aortic arch and descending thoracic aorta. Normal visualized thoracic spine. Normal visualized ribs, clavicles, and shoulders. There is no demonstrated abnormality of the visualized soft tissue structures of the upper abdomen. RAD/Chest PA and Lateral IMPRESSION: Normal x-ray examination of the chest. Electronically Signed: Hemant Hidalgo MD at 13:57 EDT ,
[2024-06-03 12:45] LABS: Absolute Lymphocyte Count 2.32 X10^3/uL (0.83-4.51); Absolute Neutrophil Count 3.5 X10^3/uL (2.0-7.7); Basophil# 0.09 X10^3/uL; Basophil% 1.4 % (0-1); Eosinophil# 0.21 X10^3/uL; Eosinophils% 3.2 % (0-5); Hematocrit 43.9 % (40-54); Hemoglobin 14.9 g/dL (13.0-16.5); Lymphocyte # 2.32 X10^3/ul (0.83-4.51); Lymphocyte % 34.9 % (19-41); Mean Corp Hgb Conc 33.9 g/dL (32-36); Mean Corpuscular Hgb 29.2 pg (27.0-32.0); Mean Corpuscular Volume 85.9 fL (80-94); Mean Platelet Vol. 9.2 fl (6.2-12.0); Monocyte# 0.53 X10^3/uL; NRBC Flagged by Analyzer 0 % (0-5); Neutrophil # 3.48 X10^3/uL (2.7-7.7); Neutrophil % 52.2 % (47-70); Platelet Count 272 K/mm3 (150-450); RBC Distribution Width CV 12.1 % (11.6-14.6); RBC Distribution Width SD 37.9 fl (35.1-43.9); Red Blood Count 5.11 M/mm3 (4.6-6.2); White Blood Count 6.7 K/mm3 (4.4-11.0)
[2024-06-03 13:38] LABS: Anion Gap 5 (5-15); BUN 17 mg/dL (7-18); BUN/Creat Ratio 17.5 RATIO (10-20); Calcium,Total 9.4 mg/dL (8.5-10.1); Chloride 107 mmol/L (98-107); Creatinine, Serum 0.97 mg/dL (0.70-1.30); EST Glomerular Filtration Rate 86 mL/min (>60); Est Glom Filt Rate - Afr Amer 104 mL/min (>60); Glucose 100 mg/dL (74-106); Potassium 4.3 mmol/L (3.5-5.1); Sodium Level 139 mmol/L (136-145)
[2024-06-03 13:39] LABS: BNP,B-Type NATRIURETIC PEPTIDE 3.2 pg/mL (0-100)
== END | disposition home or self-care (01) ==
PROVIDERS: PCP Nurse Practitioner Family; Referring Provider Nurse Practitioner Gerontology; Visit Provider Nurse Practitioner Gerontology
DX: R06.02 Shortness of breath (principal); R05.8 Other specified cough; R06.09 Other forms of dyspnea; I34.0 Nonrheumatic mitral (valve) insufficiency
CPT/HCPCS: 36415; 71046; 80048; 83880; 85025

== ENCOUNTER → 2024-08-30 | Outpatient (CLI) | payer OTHER, SELFPAY ==
[2024-08-30] MEDS: Methacholine Chloride 18 ml neb kit INHALATION (07:02)
== END | disposition home or self-care (01) ==
LOC: PSN 06:40
PROVIDERS: PCP Nurse Practitioner Family
DX: R06.02 Shortness of breath (principal)
CPT/HCPCS: 94070; 95070

== ENCOUNTER → 2024-11-11 | Outpatient (CLI) | payer OTHER, SELFPAY ==
[2024-11-11 17:07] LABS: Anion Gap 5 (5-15); BUN 17 mg/dL (7-18); Calcium,Total 9.1 mg/dL (8.5-10.1); Chloride 104 mmol/L (98-107); Creatinine, Serum 1.13 mg/dL (0.70-1.30); EST Glomerular Filtration Rate 72 mL/min (>60); Est Glom Filt Rate - Afr Amer 87 mL/min (>60); Glucose 99 mg/dL (74-106); Potassium 4.5 mmol/L (3.5-5.1); Sodium Level 139 mmol/L (136-145)
== END | disposition home or self-care (01) ==
LOC: LAB 16:01
PROVIDERS: PCP Nurse Practitioner Family; Referring Provider Internal Medicine Cardiovascular Disease; Visit Provider Internal Medicine Cardiovascular Disease
DX: R07.9 Chest pain, unspecified (principal); R06.09 Other forms of dyspnea; I10 Essential (primary) hypertension; R06.02 Shortness of breath
CPT/HCPCS: 36415; 80048

== ENCOUNTER → 2024-11-22 | Outpatient (CLI) | payer OTHER, SELFPAY ==
--- NOTE | 2024-11-22 12:52 | ECHOD_ITS ---
Reason For Study Reason For Study: DYSPNEA Procedure This was a 2D Doppler, Color Flow transthoracic echocardiogram. Exam performed in department. Left Ventricle Normal size and thickness. The left ventricular ejection fraction is 65 %. No evidence for diastolic dysfunction. Right Ventricle Normal right ventricle. Atria The left and right atria are normal. Mitral Valve Mild prolapse of the posterior mitral valve leaflet. Moderate mitral valve regurgitation. Tricuspid Valve Mild tricuspid valve insufficiency. Right ventricular systolic pressure estimated to be 42 mmHg. Aortic Valve Trisinus/trileaflet aortic valve. Pulmonic Valve Mild (1+) pulmonic valve insufficiency. Great Vessels Normal sized aortic root. Pericardium/Pleural No pericardial effusion. MMode/2D Measurements & Calculations LVIDd: 4.6 cm IVSd: 1.1 cm LVOT diam: 2.1 cm LVIDs: 2.3 cm LVPWd: 0.98 cm LVOT area: 3.4 cm2 RVDd: 3.9 cm FS: 50.7 % LA dimension: 4.0 cm asc Aorta Diam: 2.8 cm LAV(MOD- bp): 37.8 ml LAV(MOD- bp) Indexed: 17.9 ml/m2 LAV(MOD- sp2): 50.7 ml LAV(MOD- sp4): 28.6 ml SV(MOD- sp4): 67.5 ml LVAd ap4: 31.4 cm2 LVAd ap2: 29.5 cm2 LVLd ap4: 8.1 cm LVLd ap2: 8.2 cm SI(MOD- sp4): 32.0 ml/m2 EDV(MOD-sp4): 98.0 ml EDV(MOD-sp2): 87.1 ml EDV(sp4-el): 103.0 ml EDV(sp2-el): 90.1 ml LVAs ap4: 15.6 cm2 LVAs ap2: 14.5 cm2 LVLs ap4: 7.0 cm LVLs ap2: 6.8 cm ESV(MOD-sp4): 30.5 ml ESV(MOD-sp2): 26.2 ml ESV(sp4-el): 29.7 ml ESV(sp2-el): 26.0 ml EF(MOD-sp4): 68.9 % EF(MOD-sp2): 69.9 % EF(sp4-el): 71.2 % SV(MOD-sp2): 60.9 ml SV(sp4-el): 73.3 ml Ao sinus diam: 3.4 cm SI(MOD-sp2): 28.9 ml/m2 Ao ST Junction: 2.7 cm LA dimension(2D): 3.7 cm LA A4 area: 13.2 cm2 TAPSE: 1.9 cm RA A4 area: 12.7 cm2 Time Measurements MV dec time: 0.30 sec Doppler Measurements & Calculations MV E max neal: 65.1 cm/sec Lat Peak E' Neal: 10.7 cm/sec Med Peak E' Neal: 9.7 cm/sec MV A max neal: 53.8 cm/sec E/E' lat: 6.1 E/E' med: 6.7 MV E/A: 1.2 MV dec slope: 219.6 cm/sec2 Ao V2 max: 125.6 cm/sec LV V1 max: 105.8 cm/sec Ao max P.3 mmHg LV V1 max P.5 mmHg Ao V2 mean: 93.7 cm/sec LV V1 mean P.3 mmHg Ao mean P.8 mmHg LV V1 mean: 68.7 cm/sec Ao V2 VTI: 23.5 cm LV V1 VTI: 18.2 cm AV (velocity ratio): 0.77 ANU(I,D): 2.6 cm2 ANU(V,D): 2.8 cm2 SV(LVOT): 61.4 ml PA V2 max: 86.3 cm/sec TR max neal: 259.4 cm/sec TR max P.9 mmHg ECHO/Echo Complete Interpretation Summary The left ventricular ejection fraction is 65 %. No evidence for diastolic dysfunction. Mild prolapse of the posterior mitral valve leaflet. Moderate mitral valve regu rgitation. Mild tricuspid valve insufficiency. Right ventricular systolic pressure estimated to be 42 mmHg. Mild (1+) pulmonic valve insufficiency. Ordering Physician: Milagros Jolley Referring Physician: Milagros Jolley MD Performed By: Loulou Horta SACHIN
== END | disposition home or self-care (01) ==
PROVIDERS: PCP Nurse Practitioner Family; Referring Provider Internal Medicine Cardiovascular Disease; Visit Provider Internal Medicine Cardiovascular Disease
DX: R07.9 Chest pain, unspecified (principal); R06.09 Other forms of dyspnea; I34.1 Nonrheumatic mitral (valve) prolapse; I34.0 Nonrheumatic mitral (valve) insufficiency; R06.02 Shortness of breath
CPT/HCPCS: 93306

== ENCOUNTER → 2024-11-25 | Outpatient (CLI) | payer OTHER, SELFPAY ==
--- NOTE | 2024-11-25 11:04 | RAD_ITS ---
PROCEDURE: CHEST PA AND LATERAL REASON FOR EXAM: Shortness of breath TECHNIQUE: Frontal and lateral views of the chest. COMPARISON: 06/03/2024 chest. FINDINGS: The heart size is normal. The mediastinal contour is unremarkable. The lungs are clear. The bones are unremarkable. RAD/Chest PA and Lateral IMPRESSION: No active cardiopulmonary disease. Reading Location: [facility]
[2024-11-25 12:37] LABS: Absolute Lymphocyte Count 2.04 X10^3/uL (0.83-4.51); Absolute Neutrophil Count 2.9 X10^3/uL (2.0-7.7); Basophil# 0.08 X10^3/uL; Basophil% 1.4 % (0-1); Eosinophil# 0.29 X10^3/uL; Hematocrit 44.7 % (40-54); Hemoglobin 14.8 g/dL (13.0-16.5); Lymphocyte # 2.04 X10^3/ul (0.83-4.51); Lymphocyte % 35.1 % (19-41); Mean Corp Hgb Conc 33.1 g/dL (32-36); Mean Corpuscular Hgb 28.7 pg (27.0-32.0); Mean Corpuscular Volume 86.8 fL (80-94); Mean Platelet Vol. 9.8 fl (6.2-12.0); Monocyte# 0.48 X10^3/uL; Monocyte% 8.2 % (0-10); NRBC Flagged by Analyzer 0 % (0-5); Neutrophil % 49.8 % (47-70); Platelet Count 283 K/mm3 (150-450); RBC Distribution Width CV 12.3 % (11.6-14.6); RBC Distribution Width SD 39.3 fl (35.1-43.9); Red Blood Count 5.15 M/mm3 (4.6-6.2); White Blood Count 5.8 K/mm3 (4.4-11.0)
== END | disposition home or self-care (01) ==
PROVIDERS: PCP Nurse Practitioner Family; Referring Provider Nurse Practitioner Family; Visit Provider Nurse Practitioner Family
DX: R06.02 Shortness of breath (principal)
CPT/HCPCS: 36415; 71046; 85025